=== PATIENT | female | born 1965 | race Caucasian/White ===

== ENCOUNTER → 2018-01-18 | Emergency (ER) | payer BC ==
[~2018-01-18] MED LIST: MAGNESIUM SULF 50% (8.12 MEQ/2 ML-1 GM VIAL) IVPB ONE; MAGNESIUM SULF 50% (8.12 MEQ/2 ML-1 GM VIAL) ONE
[2018-01-18 12:24] VITALS: TEMP 98.2; BMI 28.3
--- NOTE | 2018-01-18 12:45 | PDOC ---
History of Present Illness - General Chief Complaint: Chest Pain Stated Complaint: CHEST PAIN Time Seen by Provider: 01/18/18 12:43 - History of Present Illness Initial Comments: 01/18/18 13:20 52 yo F with h/o SVT s/p ablation who presents with palpitations. Pt. reports multiple episodes of palpitaions, lightheadness, and SOB beginning yesterday while shoveling snow. 3-4 epsiodes within 24 hours. Also complains of LOPEZ and elevated SBP~160. On Diltiazem. Denies CP, N/V, F/C, abdominal pain, diarrhea, constipation, urinary complaints, weakness, vision changes, vertigo, slurred speech, sensory changes. Denies h/o CAD/CO. 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 Past History - Past Medical History Allergies/Adverse Reactions: Allergies Allergy/AdvReac Type Severity Reaction Status Date / Time No Known Allergies Allergy Verified 01/18/18 12:17 Home Medications: Ambulatory Orders Diltiazem HCl [Diltiazem 24Hr Cd] 240 mg PO DAILY 01/18/18 Escitalopram Oxalate [Lexapro -] 10 mg PO DAILY 01/18/18 Pantoprazole Sodium [Protonix] 40 mg PO DAILY 01/18/18 Cardiac Disorders: Yes (SVT - [employer] monitering device to Left chest) COPD: No DVT: No HTN: Yes - Surgical History Abdominal Surgery: Yes (Gastricsleeve) - Immunization History Immunization Up to Date: Yes - Suicide/Smoking/Psychosocial Hx Smoking History: Former smoker Have you smoked in the past 12 months: No If you are a former smoker, when did you quit?: 30yrs Information on smoking cessation initiated: No Hx Alcohol Use: No Drug/Substance Use Hx: No Substance Use Type: None Review of Systems - Review of Systems Comments:: 01/18/18 12:44 GENERAL/CONSTITUTIONAL: No fever or chills. No weakness. HEAD, EYES, EARS, NOSE AND THROAT: No change in vision. No ear pain or discharge. No sore throat.- CARDIOVASCULAR: No chest pain or shortness of breath RESPIRATORY: No cough, wheezing, or hemoptysis. GASTROINTESTINAL: No nausea, vomiting, diarrhea or constipation. GENITOURINARY: No dysuria, frequency, or change in urination. MUSCULOSKELETAL: No joint or muscle swelling or pain. No neck or back pain. SKIN: No rash NEUROLOGIC: No headache, vertigo, loss of consciousness, or change in strength/ sensation. ENDOCRINE: No increased thirst. No abnormal weight change HEMATOLOGIC/LYMPHATIC: No anemia, easy bleeding, or history of blood clots. ALLERGIC/IMMUNOLOGIC: No hives or skin allergy. *Physical Exam - Vital Signs Last Vital Signs Temp Pulse Resp BP Pulse Ox 98.2 F 107 H 16 166/107 97 01/18/18 12:17 01/18/18 12:17 01/18/18 12:17 01/18/18 12:17 01/18/18 12:17 - Physical Exam Comments: 01/18/18 12:44 GENERAL: Awake, alert, and fully oriented, in no acute distress HEAD: No signs of trauma, normocephalic, atraumatic EYES: PERRLA, EOMI, sclera anicteric, conjunctiva clear ENT: Hearing grossly normal, nares patent, oropharynx clear without exudates. Moist mucosa NECK: Normal ROM, supple, no lymphadenopathy, JVD, or masses LUNGS: No distress, speaks full sentences, clear to auscultation bilaterally HEART: Irregular rate and normal rhythm, normal S1 and S2, no murmurs, rubs or gallops, peripheral pulses normal and equal bilaterally. EXTREMITIES : Normal inspection, Normal range of motion, no edema. No clubbing or cyanosis. NEUROLOGICAL: Cranial nerves II through XII grossly intact. Normal speech, normal gait, no focal sensorimotor deficits SKIN: Warm, Dry, normal turgor, no rashes or lesions noted Heart Score/ECG Review - History History: Slightly suspicious - Electrocardiogram EKG: Non specific repolarization disturbance - Age Age: 45-65 - Risk Factors Risk Factors Heart Score: Yes Hx Hypertension, Yes Positive family hx of cardiac disease Based on the list above the patient has:: 1-2 risk factors - Troponin Troponin: </= normal limit - Score Heart Score - Total: 3 ED Treatment Course - LABORATORY CBC & Chemistry Diagram: 01/18/18 13:55 01/18/18 14:50 Medical Decision Making - Medical Decision Making 01/18/18 13:35 52 yo F with h/o SVT s/p ablation who presents with multiple episodes of palpitations, lightheadedness, and SOB beginning yesterday while shoveling snow. 3-4 episodes within 24 hours. Also complains of LOPEZ and elevated SBP~160. On Diltiazem. Denies CP, N/V, F/C, abdominal pain, diarrhea, constipation, urinary complaints, weakness, vision changes, slurred speech, sensory changes. Denies h/o CAD/CO. 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 Currently 156/91. Physical exam unremarkable. No evidence of end organ damage on physical exam. Low suspicion of hypertensive emergency or ACS/CO. Differential includes SVT, electrolyte abnormalities, metabolic disturbance. 4 episodes of SVT within 4 hours, concerning for V Tach and possible Torsades. ED Course: CBC ,CMP, Cardiac Pr UA, Mg EKG, CXR 01/18/18 13:39 EKG: NSR with absent JENNIE, STD, or TWI. Normal axis and interval duration. 01/18/18 14:56 CXR: No acute pulm disease CBC: Unremarkable 01/18/18 15:06 Trop: Neg 01/18/18 15:46 CMP: Unremarkable Magnesium: 2.1 Patient currently asymptomatic and BP 151/69 Pt. refuses admission. Will leave AMA. Advised to f/u with PMD and manager planning Dr. Clemente. *DC/Admit/Observation/Transfer Diagnosis at time of Disposition: Heart palpitations - Discharge Dispostion Disposition: AGAINST MEDICAL ADVICE Condition at time of disposition: Stable - Referrals - Patient Instructions Printed Discharge Instructions: DI for Palpitations Additional Instructions: Please return to the emergency department with any new or worsening symptoms or concerns. Please follow up with your primary care physician within 72 hours. Please follow up with your manager planning within 24-48 hours. - Post Discharge Activity - Attestations Physician Attestion: 01/18/18 12:44 I attest to the information provided in this note.
--- NOTE | 2018-01-18 14:05 | EKG ---
Test Reason : Blood Pressure : / mmHG Vent. Rate : 107 BPM Atrial Rate : 107 BPM P-R Int : 160 ms QRS Dur : 082 ms QT Int : 372 ms P-R-T Axes : 056 022 044 degrees QTc Int : 496 ms SINUS TACHYCARDIA OTHERWISE NORMAL ECG WHEN COMPARED WITH ECG OF 02-AUG-2011 12:12, FUSION COMPLEXES ARE NO LONGER PRESENT VENT. RATE HAS INCREASED BY 40 BPM NONSPECIFIC T WAVE ABNORMALITY NO LONGER EVIDENT IN ANTERIOR LEADS QT HAS LENGTHENED Confirmed by CAROLYN MENDOZA, ARABELLA ([id number]) on 01/18/2018 2:04:41 PM Referred By: Confirmed By:ARABELLA LEON MD
[2018-01-18 14:32] LABS: BASO % 0.6 % (0-2.0); EOS % 2.5 % (0-4.5); HEMATOCRIT 36.6 % (32.4-45.2); HEMOGLOBIN 12.6 GM/dL (10.7-15.3); LYMPH % 21.1 % (8-40); MCH 31.3 pg (25.7-33.7); MCHC 34.6 g/dl (32.0-36.0); MEAN CELL VOLUME 90.5 fl (80-96); MEAN PLT VOLUME 7.8 fl (7.5-11.1); MONO % 4.7 % (3.8-10.2); NEUT % 71.1 % (42.8-82.8); PLATELET COUNT 235 K/MM3 (134-434); RBC 4.04 M/mm3 (3.60-5.2); RDW 14.3 % (11.6-15.6); WHITE BLOOD COUNT 7.4 K/mm3 (4.0-10.0)
[2018-01-18 14:44] LABS: INR 0.99 (0.82-1.09); PROTHROMBIN TIME (PATIENT) 11.2 SEC (9.98-11.88)
[2018-01-18 15:32] LABS: ALBUMIN 4.4 g/dl (3.4-5.0); ANION GAP 7 (8-16); BLOOD UREA NITROGEN 11 mg/dL (7-18); CALCIUM 9.5 mg/dL (8.5-10.1); CHLORIDE 103 mmol/L (98-107); CO2 27 mmol/L (21-32); GLUCOSE,RANDOM 85 mg/dL (74-106); MAGNESIUM 2.1 mg/dL (1.8-2.4); POTASSIUM 4.3 mmol/L (3.5-5.1); SODIUM 137 mmol/L (136-145)
[2018-01-18 15:37] LABS: ALK PHOS 90 U/L (45-117); BILIRUBIN,TOTAL 0.5 mg/dL (0.2-1.0); CREATININE 0.8 mg/dL (0.55-1.02); SGOT/AST 21 U/L (15-37); SGPT/ALT 25 U/L (12-78); TOT PROT 7.7 g/dl (6.4-8.2)
--- NOTE | 2018-01-18 15:46 | PDOC ---
Attending Attestation - Resident Resident Name: Oh Dumasson - ED Attending Attestation I have performed the following: I have examined & evaluated the patient, The case was reviewed & discussed with the resident, I agree w/resident's findings & plan, Exceptions are as noted - HPI HPI: 01/18/18 15:21 52-year-old female with past medical history of SVT status post failed ablations , prolonged QT on diltiazem presents with several episodes of palpitations. The patient was shoveling yesterday when she felt several episodes of discrete palpitations. She denied chest pain or short of breath. Stated that she felt generally weak so came to the ED today. Denies symptoms now but was concerned that her blood pressures elevated. Denies denies recent illnesses, fevers, chills, cough, vomiting, diarrhea. - Physicial Exam PE: 01/18/18 16:47 GENERAL: Awake, alert, and fully oriented, in no acute distress. HEAD: No signs of trauma EYES: PERRLA, EOMI, sclera anicteric, conjunctiva clear ENT: Auricles normal inspection, hearing grossly normal, nares patent, NECK: Normal ROM, supple LUNGS: Breath sounds equal, clear to auscultation bilaterally. No wheezes, and no crackles HEART: Regular rate and rhythm, normal S1 and S2, no murmurs, rubs or gallops ABDOMEN: Soft, nontender. No guarding, no rebound. No masses EXTREMITIES: Normal range of motion, no edema. No clubbing or cyanosis. No cords, erythema, or tenderness NEUROLOGICAL: Cranial nerves II through XII grossly intact. Normal speech, normal gait SKIN: Warm, Dry, normal turgor, no rashes or lesions noted. - Medical Decision Making 01/18/18 16:49 Vital Signs Temp Pulse Resp BP Pulse Ox 98.2 F 91 H 16 151/89 100 01/18/18 12:17 01/18/18 16:24 01/18/18 16:24 01/18/18 16:24 01/18/18 16:24 52-year-old female presents with intermittent episodes palpitations. Patient's EKG demonstrates sinus tach but otherwise with a prolonged QT. Differential includes SVT versus torsades versus sinus tachycardia versus anxiety. However, given her history prolonged QT and multiple discrete episodes, patient emitted for telemetry. I agree with the plan for labs and admission. 01/18/18 17:17 CBC, BMP 01/18/18 13:55 01/18/18 14:50 CMP Sodium 137 mmol/L (136-145) 01/18/18 14:50 Potassium 4.3 mmol/L (3.5-5.1) 01/18/18 14:50 Chloride 103 mmol/L (98-107) 01/18/18 14:50 Carbon Dioxide 27 mmol/L (21-32) 01/18/18 14:50 Anion Gap 7 (8-16) L 01/18/18 14:50 BUN 11 mg/dL (7-18) 01/18/18 14:50 Creatinine 0.8 mg/dL (0.55-1.02) 01/18/18 14:50 Creat Clearance w eGFR > 60 (>60) 01/18/18 14:50 Random Glucose 85 mg/dL (74-106) 01/18/18 14:50 Calcium 9.5 mg/dL (8.5-10.1) 01/18/18 14:50 Magnesium 2.1 mg/dL (1.8-2.4) 01/18/18 14:50 Total Bilirubin 0.5 mg/dL (0.2-1.0) 01/18/18 14:50 AST 21 U/L (15-37) 01/18/18 14:50 ALT 25 U/L (12-78) 01/18/18 14:50 Alkaline Phosphatase 90 U/L (45-117) 01/18/18 14:50 Creatine Kinase 132 IU/L (26-192) 01/18/18 13:55 Troponin I < 0.02 ng/ml (0.00-0.05) 01/18/18 13:55 Total Protein 7.7 g/dl (6.4-8.2) 01/18/18 14:50 Albumin 4.4 g/dl (3.4-5.0) 01/18/18 14:50 01/18/18 17:18 Patient has capacity and is AAOx3. After lengthy discussion with the patient with Dr. Dumas and the ED team, the patient requests to go home. She is aware of the risks of palpitations and potentially disarrhythmias. 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 Heart Score/ECG Review #1 ECG reviewed & interpreted by me at: 12:20 01/18/18 16:48 NSR 107, no std/kody, normal axis, QTC 496 msec (prolonged)
[2018-01-18 16:25] VITALS: BP 151/89; PULSE 91
== END | disposition left against medical advice (07) ==
LOC: JER 12:04
PROC: 3E033GC Introduction of Other Therapeutic Substance into Peripheral Vein, Percutaneous Approach (ICD-10-PCS; principal; 2018-01-18)
DX: R00.2 Palpitations (principal); I10 Essential (primary) hypertension; I47.1 Supraventricular tachycardia; Z95.818 Presence of other cardiac implants and grafts
CPT/HCPCS: 36415; 71045-TC-FY; 80053; 82550; 83735; 84484; 85025; 85610; 93005; 93010; 99284-25

== ENCOUNTER 2024-09-12 21:55 | Emergency (ER) | payer OTHER ==
[2024-09-12 22:25] VITALS: TEMP 98.3; BMI 31.8
[2024-09-13 00:04] LABS: BASO % 0.8 % (0-2.0); EOS % 5.7 % (0-4.5); HEMOGLOBIN 10.4 GM/dL (10.7-15.3); LYMPH % 15.2 % (8-40); MCH 31.4 pg (25.7-33.7); MCHC 33.5 g/dl (32.0-36.0); MEAN CELL VOLUME 93.8 fl (80-96); MEAN PLT VOLUME 7.9 fl (7.5-11.1); MONO % 4.7 % (3.8-10.2); NEUT % 73.6 % (42.8-82.8); PLATELET COUNT 117 10^3/uL (134-434); RBC 3.31 M/mm3 (3.60-5.2); RDW 15.1 % (11.6-15.6); WHITE BLOOD COUNT 9.2 K/mm3 (4.0-10.0)
[2024-09-13] MEDS ORDERED: ACETAMINOPHEN INJECTION 100 ML ONE (00:17)
[2024-09-13] MEDS: ACETAMINOPHEN 1000 MG/100 ML BAG IVPB ONE (00:22)
[2024-09-13 00:25] LABS: ALBUMIN 3.5 g/dl (3.4-5.0); CALCIUM 9.2 mg/dL (8.5-10.1)
[2024-09-13 00:26] LABS: BLOOD UREA NITROGEN 6.2 mg/dL (7-18)
[2024-09-13 00:29] LABS: CREATININE 0.7 mg/dL (0.55-1.3)
[2024-09-13 00:30] LABS: BILIRUBIN,TOTAL 2.5 mg/dL (0.2-1); TOT PROT 7.8 g/dl (6.4-8.2)
[2024-09-13 00:32] LABS: INR 1.29 (0.83-1.09); PROTHROMBIN TIME (PATIENT) 14.5 SEC (9.7-13.0)
[2024-09-13 00:35] LABS: ACTIVATED PTT 37.9 SECONDS (25.2-36.5)
[2024-09-13 01:21] LABS: HIV INTERPRETATION NEGATIVE (NEGATIVE)
[2024-09-13 01:31] VITALS: BP 124/66; PULSE 92; RESP 16
== END 2024-09-13 02:23 | disposition home or self-care (01) ==
LOC: JER 21:55
PROC: 3E033NZ Introduction of Analgesics, Hypnotics, Sedatives into Peripheral Vein, Percutaneous Approach (ICD-10-PCS; principal; 2024-09-13)
DX: S30.1XXA Contusion of abdominal wall, initial encounter (principal); K74.60 Unspecified cirrhosis of liver; W01.0XXA Fall on same level from slipping, tripping and stumbling without subsequent striking against object, initial encounter; Y93.01 Activity, walking, marching and hiking
CPT/HCPCS: 36415; 74176-TC; 80053; 85025; 85610; 85730; 86803; 86850; 86900; 86901; 87389; 99284-25; J0131